=== PATIENT | male | born 1945 | race Caucasian/White ===

== ENCOUNTER → 2018-12-15 | Outpatient (CLI) | payer MEDICARE ==
[2018-12-15 09:41] LABS: ALANINE AMINOTRANSFERASE 15 U/L (0-55); ALBUMIN 4.5 GM/DL (3.2-4.5); ALKALINE PHOSPHATASE 74 U/L (40-136); BILIRUBIN,TOTAL 0.5 MG/DL (0.1-1.0); BUN/CREATININE RATIO 14; CALCIUM 9.7 MG/DL (8.5-10.1); CARBON DIOXIDE 25 MMOL/L (21-32); CHLORIDE 104 MMOL/L (98-107); CREATININE SERUM 0.96 MG/DL (0.60-1.30); GFR ESTIMATED > 60; GLUCOSE 110 MG/DL (70-105); POTASSIUM 4.2 MMOL/L (3.6-5.0); SODIUM 143 MMOL/L (135-145); TOTAL PROTEIN 7.6 GM/DL (6.4-8.2)
[2018-12-15 15:44] LABS: CHOLESTEROL 225 MG/DL (< 200); HDL CHOLESTEROL 37 MG/DL (40-60); TRIGLYCERIDES 156 MG/DL (<150); VLDL CHOLESTEROL 31 MG/DL (5-40)
== END ==
LOC: RAD FS 08:28
PROVIDERS: ATTEND Pediatrics
DX: Z12.5 Encounter for screening for malignant neoplasm of prostate (principal); I25.10 Atherosclerotic heart disease of native coronary artery without angina pectoris
CPT/HCPCS: 36415; 80053; 80061; 84153

== ENCOUNTER 2019-04-14 05:50 | Outpatient (CLI) | payer MEDICARE ==
[~2019-04-14] VITALS: Ht 175.3 cm; Wt 77.1 kg
[2019-04-14] MEDS ORDERED: TAMS0.4C98 PO (16:08)
[2019-04-14] MEDS ORDERED: ASPI-586 PO (16:08)
== END 2019-04-14 16:16 | disposition home or self-care (01) ==
LOC: PREOP 05:50
PROVIDERS: ATTEND Pediatrics
DX: Z01.818 Encounter for other preprocedural examination (principal)

== ENCOUNTER 2019-04-16 07:08 | Day surgery (SDC) | payer MEDICARE ==
[~2019-04-16] VITALS: Ht 175.3 cm; Wt 77.1 kg
[2019-04-16] VITALS (9 sets, daily range): BP systolic 123–163; BP diastolic 64–76
[~2019-04-16 07:08] MED LIST: ASPI-586 PO; TAMS0.4C98 PO
[2019-04-16] MEDS ORDERED: NS IV 500 ML 500 ML ONE (07:11)
[2019-04-16] MEDS ORDERED: NS IV 500 ML 500 ML IV PRN (07:21)
[2019-04-16] MEDS ORDERED: fentaNYL INJECTION 100 MCG/2 ML AMP IVP ONE (07:30)
[2019-04-16] MEDS ORDERED: MIDAZOLAM 2 MG/2 ML (VERSED) VIAL IVP ONE (07:30)
--- NOTE | 2019-04-16 08:04 | Progress Note-Pre Operative ---
Pre-Operative Progress Note H&P Reviewed The H&P was reviewed, patient examined and no changes noted. Date Seen by Provider: Apr 16, 2019 Time Seen by Provider: 08:04 Date H&P Reviewed: Apr 16, 2019 Time H&P Reviewed: 08:04 Pre-Operative Diagnosis: SAUD Felix MD Apr 16, 2019 08:04
--- NOTE | 2019-04-16 08:25 | Endoscopy Procedure Report ---
Colonoscopy Procedure Performed: Colonoscopy Pre-Operative Diagnosis: screening Post-Operative Diagnosis: diverticulsosi Customer Service Technician: None. Indications for Procedure: screen Procedure Details: Informed consent was obtained, the risks, benefits and alternatives to the procedure were explained to the patient. The Willard Aponte, a 73 yr old male, was brought to to surgery area, was not sedated as per his preference He was placed in the left lateral decubitus position. Under direct visualization the scope was passed easily to the cecum. Cecum is identified by landmarks. Scope was carefully withdrawn. Findings: Ascending Colon: none Transverse Colon: none Descending/Sigmoid: diffuse diverticular changes Rectum: none Estimated Blood Loss: 0mL Specimens: none Complications: None; patient tolerated the procedure well. Final Diagnosis: sigmoid diverticulosis SAUD ESCAMILLA MD Apr 16, 2019 08:25
== END 2019-04-16 08:50 | disposition home or self-care (01) ==
LOC: ENDO 07:08
PROVIDERS: ATTEND Pediatrics
DX: Z12.11 Encounter for screening for malignant neoplasm of colon (principal); K57.30 Diverticulosis of large intestine without perforation or abscess without bleeding; Z95.5 Presence of coronary angioplasty implant and graft; Z79.899 Other long term (current) drug therapy; Z79.82 Long term (current) use of aspirin; Z87.891 Personal history of nicotine dependence
CPT/HCPCS: G0121